=== PATIENT | female | born 1985 | race Hispanic/Latino ===

== ENCOUNTER 2018-02-01 20:07 | Emergency (ER) | payer OTHER ==
[2018-02-01 20:58] LABS: RAPID GROUP A STREP NEGATIVE (NEGATIVE)
[2018-02-01] MEDS ORDERED: KETOROLAC TROMETHAMINE 60 MG/2 ML VIAL ONE (21:26)
[2018-02-01] MEDS ORDERED: ACETAMINOPHEN EXTRA STRENGTH 500 MG TABLET ONE (21:26)
[2018-02-01] MEDS ORDERED: DEXAMETHASONE SOD PHOSPHATE 10MG/ML 1ML VIAL ONE (21:26)
== END 2018-02-01 22:24 | disposition home or self-care (01) ==
LOC: EDH 20:07
DX: J06.9 Acute upper respiratory infection, unspecified (principal); Z72.0 Tobacco use
CPT/HCPCS: 87804 ×2; 87880; 96372 ×2; 99284; J1100; J1885

== ENCOUNTER 2018-04-05 04:05 | Emergency (ER) | payer OTHER | END 2018-04-05 04:46 | disposition home or self-care (01) | LOC: EDH 04:05 | DX: S00.31XA Abrasion of nose, initial encounter (principal); Z72.0 Tobacco use; Y08.89XA Assault by other specified means, initial encounter; Y93.89 Activity, other specified; Y92.89 Other specified places as the place of occurrence of the external cause; Y99.8 Other external cause status | CPT/HCPCS: 99281 ==

== ENCOUNTER 2018-08-18 15:29 | Emergency (ER) | payer SELFPAY ==
[2018-08-18 16:14] LABS: BASOPHILS % (AUTO) 0.6 % (0.0-5.0); EOSINOPHILS % (AUTO) 2.7 % (0.0-8.0); LYMPHOCYTES % (AUTO) 20.3 % (21.0-51.0); MEAN CORPUSCULAR HEMOGLOBIN 30.1 pg (27.0-33.0); MEAN CORPUSCULAR HGB CONC 33.1 g/dL (32.0-36.0); MEAN CORPUSCULAR VOLUME 90.9 fL (79-99); MONOCYTES % (AUTO) 5.6 % (3.0-13.0); NEUTROPHILS % (AUTO) 70.8 % (40.0-77.0); PLATELET COUNT (AUTO) 357 K/uL (130-400); RED BLOOD CELL COUNT(AUTO) 4.85 MIL/uL (4.00-5.50); RED CELL DISTRIBUTION WIDTH 17.1 % (11.0-15.5); WHITE BLOOD COUNT (AUTO) 13.6 K/uL (4.8-10.8)
[2018-08-18 16:22] LABS: CREATININE 0.7 mg/dL (0.5-1.5); POTASSIUM 3.4 mmol/L (3.5-5.1)
[2018-08-18 16:33] LABS: ALBUMIN 3.8 g/dL (3.5-5.0); BILIRUBIN,DIRECT 0.1 mg/dL (0.0-0.3); BILIRUBIN,TOTAL 0.5 mg/dL (0.2-1.0); TOTAL PROTEIN, SERUM 8.3 g/dL (6.0-8.3)
[2018-08-18 16:39] LABS: APPEARANCE,URINE CLOUDY (CLEAR); BILIRUBIN,URINE MODERATE (NEGATIVE); COLOR,URINE ORANGE (YELLOW); GLUCOSE, URINE (UA) NEGATIVE (NEGATIVE); KETONES,URINE 5 mg/dL (NEGATIVE); LEUKOCYTE ESTERASE ,URINE TRACE (NEGATIVE); NITRATE,URINE NEGATIVE (NEGATIVE); OCCULT BLOOD,URINE LARGE (NEGATIVE); PH,URINE 5.5 (5.0-8.0); PROTEIN,URINE 100 mg/dL (NEGATIVE)
[2018-08-18 16:46] LABS: BACTERIA,URINE Few /HPF (None Seen); MUCUS,URINE Many LPF (None Seen); RBC,URINE 51-100 /HPF (0-1); WBC,URINE 26-50 /HPF (0-1)
[2018-08-18 16:47] LABS: SQUAMOUS EPITHELIAL CELL,UR 30-50 /HPF (0-2)
[2018-08-18] MEDS ORDERED: KETOROLAC TROMETHAMINE 60 MG/2 ML VIAL ONE (16:48)
[2018-08-18 16:54] LABS: AMPHET/METH SCREEN,URINE NEGATIVE (NEGATIVE); BARBITURATE SCREEN, URINE NEGATIVE (NEGATIVE); BENZODIAZEPINES SCREEN,URINE NEGATIVE (NEGATIVE); CANNABINOID SCREEN,URINE NEGATIVE (NEGATIVE); COCAINE SCREEN,URINE POSITIVE (NEGATIVE); OPIATE SCREEN,URINE NEGATIVE (NEGATIVE); PHENCYCLIDINE SCREEN,URINE NEGATIVE (NEGATIVE)
== END 2018-08-18 17:01 | disposition home or self-care (01) ==
LOC: EDH 15:29
DX: O23.41 Unspecified infection of urinary tract in pregnancy, first trimester (principal); O99.331 Smoking (tobacco) complicating pregnancy, first trimester; Z3A.09 9 weeks gestation of pregnancy
CPT/HCPCS: 36415; 76801; 80048; 80076; 80305; 81001; 84702; 85025; 86900; 86901; 87486; 87797; 96372; 99285; J1885

== ENCOUNTER 2020-08-05 19:26 | Emergency (ER) | payer SELFPAY ==
[2020-08-05] MEDS ORDERED: AMOXICILLIN/POTASSIUM CLAV 875-125 TABLET PO ONE (19:48)
[2020-08-05] MEDS ORDERED: KETOROLAC TROMETHAMINE 30MG/ML ONE (19:48)
== END 2020-08-05 20:06 | disposition home or self-care (01) ==
LOC: EDH 19:26
DX: K04.7 Periapical abscess without sinus (principal); K05.00 Acute gingivitis, plaque induced; Z72.0 Tobacco use
CPT/HCPCS: 96372; 99283; J1885

== ENCOUNTER 2020-09-24 21:14 | Emergency (ER) | payer OTHER, SELFPAY ==
[~2020-09-24] VITALS: Ht 175.3 cm; Wt 68.0 kg
[2020-09-24] MEDS ORDERED: ACETAMINOPHEN-CODEINE 300/30MG TAB PO SCH (22:00)
[2020-09-24] MEDS ORDERED: CLINDAMYCIN HCL 150 MG CAP PO SCH (22:00)
[2020-09-24] MEDS ORDERED: IBUP-2077 PO (22:03)
[2020-09-24] MEDS ORDERED: CLIN300C10 PO (22:03)
[2020-09-24 22:26] VITALS: BP 137/77
== END 2020-09-24 22:30 | disposition home or self-care (01) ==
LOC: EDH 21:14
DX: K05.10 Chronic gingivitis, plaque induced (principal); K13.79 Other lesions of oral mucosa

== ENCOUNTER → 2020-10-20 | Emergency (ER) | payer OTHER ==
[~2020-10-20] VITALS: Ht 175.3 cm; Wt 72.6 kg
[~2020-10-20] MED LIST: ACET1TAB25 PO; APAP-CODEINE 300/30MG TAB ONE; APAP-CODEINE 300/30MG TAB PO ONE; CLIN300C10 PO; CLINDAMYCIN 150 MG CAP ONE; CLINDAMYCIN 150 MG CAP PO ONE; IBUP-2077 PO
[2020-10-20 17:14] VITALS: BP 145/54
[2020-10-20 18:32] VITALS: BP 136/90
== END | disposition home or self-care (01) ==
LOC: EDH 17:13
DX: K13.79 Other lesions of oral mucosa (principal); K08.89 Other specified disorders of teeth and supporting structures

== ENCOUNTER 2024-02-26 16:42 | Emergency (ER) | payer SELFPAY ==
[~2024-02-26] VITALS: Ht 175.3 cm; Wt 64.4 kg
[~2024-02-26 16:42] MED LIST changes: +ACET-2079 PO; -ACET1TAB25 PO; -APAP-CODEINE 300/30MG TAB ONE; -APAP-CODEINE 300/30MG TAB PO ONE; +CLIN-141 PO; -CLIN300C10 PO; -CLINDAMYCIN 150 MG CAP ONE; -CLINDAMYCIN 150 MG CAP PO ONE
[2024-02-26] MEDS: NEOMY SULF/BACITRA/POLYMYXIN B 1 EACH PACKET TP ONE (17:11)
[2024-02-26] MEDS: AMOX/CLAV 875/125MG TAB PO ONE (17:11)
[2024-02-26] MEDS: ibuPROFEN 800 MG TAB PO ONE (17:12)
[2024-02-26] MEDS ORDERED: IBUP-2077 PO (17:43)
[2024-02-26] MEDS ORDERED: AMOX1TAB16 PO (17:43)
[2024-02-26 18:03] VITALS: BP 122/80; PULSE 71; RESP 18; TEMP 98.2; O2SAT 98
== END 2024-02-26 18:05 | disposition home or self-care (01) ==
LOC: EDH 16:42
DX: S81.852A Open bite, left lower leg, initial encounter (principal); S81.832A Puncture wound without foreign body, left lower leg, initial encounter; F31.9 Bipolar disorder, unspecified; Z79.899 Other long term (current) drug therapy; Z98.890 Other specified postprocedural states; W54.0XXA Bitten by dog, initial encounter; Y93.89 Activity, other specified; Y92.89 Other specified places as the place of occurrence of the external cause; Y99.8 Other external cause status